=== PATIENT | female | born 1990 | race Caucasian/White ===

== ENCOUNTER → 2016-06-01 | Outpatient (CLI) | payer OTHER | LOC: OD 13:04 | PROVIDERS: ATTEND Nurse Practitioner Primary Care | DX: N91.2 Amenorrhea, unspecified (principal) | CPT/HCPCS: 36415; 84702 ==

== ENCOUNTER → 2016-06-24 | Outpatient (CLI) | payer OTHER | LOC: OD 11:57 | PROVIDERS: ATTEND Nurse Practitioner Primary Care | DX: Z32.00 Encounter for pregnancy test, result unknown (principal) | CPT/HCPCS: 36415; 84702 ==